=== PATIENT | male | born 1990 | race Caucasian/White ===

== ENCOUNTER 2019-08-15 18:20 | Inpatient (IN) | payer SELFPAY ==
[2019-08-15 18:25] VITALS: BMI 34.7
[2019-08-15 18:29] VITALS: BP 150/107; PULSE 99; RESP 16; TEMP 36.8; O2SAT 99
--- NOTE | 2019-08-15 18:36 | W.ED.PSYCH ---
HPI - Psych General: Chief Complaint: Psychiatric Symptoms Stated Complaint: psych eval Time Seen by Provider: 08/15/19 18:21 Source: patient Mode of arrival: other (police) Limitations: no limitations History of Present Illness: MD complaint: suicidal ideation Onset (ago): day(s) History of same: No Relieving factors: none Exacerbating factors: none Associated symptoms: Reports depression and suicidal ideation Review of Systems Const: Denies: fever, chills, body aches or change in appetite Eyes: Denies: blurry vision or eye discomfort ENMT: Denies: throat pain or dental pain Card: Denies: chest pain Resp: Denies: shortness of breath GI: Denies: abdominal pain, nausea, vomiting or diarrhea : Denies: painful urination Musc: Denies: neck pain or back pain Skin/Breast: Denies: rash Neuro: Denies: headache Psych: Reports: depression and suicidal ideation Brian/Lymph: Denies: easy bruising All/Imm: Denies: hives PFSH ED PFSH: Social History Smoking and tobacco status: current every day smoker Physical Exam Const: COMMON NORMALS: no apparent distress, oriented x3 and healthy appearing HENMT: COMMON NORMALS: normocephalic and head/scalp atraumatic HEAD & SCALP: normocephalic and atraumatic Eye: COMMON NORMALS: PERRL and EOMs intact bilaterally PUPIL: Yes PERRL Neck/C-Spine: COMMON NORMALS: full ROM and supple Chest: COMMONS NORMALS: inspection of chest normal and palpation of chest normal Resp: COMMON NORMALS: normal respiratory effort, no retractions, no use of accessory muscles and clear to auscultation bilaterally AUSCULTATION: clear to auscultation bilaterally Cardio: COMMON NORMALS: regular rate, regular rhythm and no murmurs RATE: regular rate RHYTHM: regular rhythm GI: COMMON NORMALS: normal to inspection, nondistended, normoactive bowel sounds, soft to palpation, non-tender and no masses PALPATION: Yes soft Extremity: COMMON NORMALS: normal to inspection and full ROM Neuro: COMMON NORMALS: oriented x3, moves all extremities and no focal motor deficits Psych: COMMON NORMALS: mental status grossly normal, thought process normal and cooperative THOUGHT PROCESS: normal thought process THOUGHT CONTENT: Yes suicidality Skin: COMMON NORMALS: no rashes or lesions noted and no wounds GENERAL SKIN EXAM: no rashes or lesions noted MDM - Psych MDM Narrative: Medical decision making narrative: Patient presents here with suicidal ideation is on a 96-hour hold. Patient had made statements about killing himself including jumping off a [place] or shooting himself. I spoke to Dr. Rubalcava and will admit to the psychiatric unit at this time. Patient is medically cleared. Lab Data: Labs: Lab Results 08/15/19 08/15/19 Range/Units 18:34 18:34 WBC 12.9 H (4.0-10.0) 10^3/ uL RBC 5.49 H (4.1-5.3) 10^6/u L Hgb 17.4 H (11.7-16.6) g/dL Hct 51.4 (42.0-52.0) % MCV 93.6 (80-94) fL MCH 31.7 (28.0-34.0) pg MCHC 33.9 (30.0-36.0) g/dL RDW 13.4 (12.1-15.1) % Plt Count 158 (130-400) 10^3/c mm MPV 11.4 H (7.4-10.4) fL Neut % (Auto) 75.5 % Lymph % (Auto) 15.2 % Menard % (Auto) 7.9 % Eos % (Auto) 0.7 % Baso % (Auto) 0.3 % Neut # (Auto) 9.7 H (1.8-7.7) 10^3/u L Lymph # (Auto) 2.0 (0.8-4.8) 10^3/u L Menard # (Auto) 1.0 H (0.2-0.9) 10^3/u L Eos # (Auto) 0.1 (0.0-0.8) 10^3/u L Baso # (Auto) 0.0 (0.0-0.1) 10^3/u L Nucleated RBC % (a uto) 0 % Nucleated RBCs # 0.0 /100WBC Sodium 137 (136-145) mmol/L Potassium 4.0 (3.5-5.1) mmol/L Chloride 101 (98-107) mmol/L Carbon Dioxide 25 (22-29) mmol/L Anion Gap 15.0 (5-19) BUN 9 (6-20) mg/dL Creatinine 0.7 (0.7-1.2) mg/dL GFR Calculation 132.4 H (90-130) mL/min Glucose 108 (65-115) mg/dL Calculated Osmolal ity 281 L (285-295) mOsm/k g Calcium 9.5 (8.5-10.5) mg/dL Total Bilirubin 0.4 (0.15-1.2) mg/dL AST 17 (0-40) U/L ALT 14 (0-41) U/L Alkaline Phosphata se 76 (40-130) IU/L Total Protein 8.3 (6.6-8.7) g/dL Albumin 4.7 (3.5-5.2) g/dL Globulin 3.6 (1.3-4.6) g/dL Salicylates < 0.3 L (3-10) mg/dL Acetaminophen < 5.0 L (10-30) ug/mL Ethyl Alcohol < 10 (0-10) mg/dL Discharge Plan Discharge Patient Disposition: Admitted As Inpatient Clinical Impression: Suicidal ideation Condition: Stable Referrals: Vitaliy Holder, FREELANCE OPERATOR-C [Primary Care Provider] - Coding Level of Care Code ED Manager Auto for Chg Fwd Exam Comprehensive
[2019-08-15 18:42] LABS: Basophils % 0.3 %; Eosinophils # 0.1 10^3/uL (0.0-0.8); Eosinophils % 0.7 %; Hematocrit 51.4 % (42.0-52.0); Hemoglobin 17.4 g/dL (11.7-16.6); Lymphocytes % 15.2 %; Mean Corpuscular HGB Conc 33.9 g/dL (30.0-36.0); Mean Corpuscular Hemoglobin 31.7 pg (28.0-34.0); Mean Corpuscular Volume 93.6 fL (80-94); Mean Platelet Volume 11.4 fL (7.4-10.4); Monocytes % 7.9 %; Neutrophils # 9.7 10^3/uL (1.8-7.7); Neutrophils % 75.5 %; Nucleated Red Blood Cells % 0 %; Platelet Count 158 10^3/cmm (130-400); Red Blood Count 5.49 10^6/uL (4.1-5.3); Red Cell Distribution Width 13.4 % (12.1-15.1); White Blood Count 12.9 10^3/uL (4.0-10.0)
[2019-08-15 19:00] LABS: Alanine Aminotransferase 14 U/L (0-41); Albumin Level 4.7 g/dL (3.5-5.2); Alkaline Phosphatase 76 IU/L (40-130); Aspartate Amino Transferase 17 U/L (0-40); Blood Urea Nitrogen 9 mg/dL (6-20); Calcium 9.5 mg/dL (8.5-10.5); Carbon Dioxide 25 mmol/L (22-29); Chloride 101 mmol/L (98-107); Globulin 3.6 g/dL (1.3-4.6); Glomerular Filtration Rate 132.4 mL/min (90-130); Glucose 108 mg/dL (65-115); Osmolality Calculated 281 mOsm/kg (285-295); Sodium 137 mmol/L (136-145); Total Bilirubin 0.4 mg/dL (0.15-1.2); Total Protein 8.3 g/dL (6.6-8.7)
[2019-08-15 19:16] LABS: Acetaminophen < 5.0 ug/mL (10-30); Alcohol Level < 10 mg/dL (0-10); Salicylate < 0.3 mg/dL (3-10)
[2019-08-15 19:45] VITALS: BP 138/84; PULSE 84; RESP 16; O2SAT 98
[2019-08-15 20:05] LABS: Amphetamines Screen Urine Positive (Negative); Barbiturates Screen Urine Negative (Negative); Benzodiazepines Screen Urine Negative (Negative); Cocaine Screen Urine Negative (Negative); Opiate Screen Urine Positive (Negative); PCP Screen Urine Negative (Negative); THC Screen Urine Positive (Negative)
[2019-08-15 20:39] VITALS: BP 138/83; PULSE 110; RESP 21; TEMP 36.4; O2SAT 100
[2019-08-15 22:00] VITALS: RESP 16
[2019-08-16 06:00] VITALS: BP 148/101; PULSE 83; RESP 23; TEMP 36.1; O2SAT 99
--- NOTE | 2019-08-16 10:29 | PM.NHP ---
Providers/Chief Complaint Admitting Physician: Bimal Rubalcava MD Primary Care Provider: Vitaliy Holder, CUSTOMER SERVICE DISPATCHER-C Chief Complaint: psych eval HPI NPU History of Present Illness Brandon Guerrero is a 28 year old male who presents today reporting that he has never had psychiatric treatment in his life, he has never been on medication, he has never had problems, and this is just a situation of his ex-girlfriend wanting to get him hemmed up and in a bad situation. He reports that he has never taken psychiatric medication, never been hospitalized, and denies any problems at this time. What he reports occurred is that his ex-girlfriend got mad because he found out that she was messing around with one of the biggest drug dealers in [facility] and that he told her family and that pissed her off and so she did this in retaliation. The story lacks merit in the sense that he vacillates back and forth between being done with the relationship and not caring and doing things that show an often lot of caring. He reports that he did not make any statements that he would kill himself, that he has never said anything like that, even after I advised him that it is not uncommon for people to do that in stressful moments in relationship, it does not mean they actually are going to do it, but that I had significant concerns that he is going to tell me that it was never said and that she is going to provide proof that it was, and now anything he says about not being suicidal now becomes questionable and at first he denied that that would be the case. He then ended up saying that she had all the passwords to all of his accounts and later acknowledged that they had been broken up for about a month. When I asked why she still had his passwords if they broke up over a month ago, he then said that he did not think it was that big of a deal, so his story does not jive. Additionally, he allowed us to call two numbers, one number did not go to the person he said it would go to. He said it was his mother?s number and it was his [id number]?s number, who did identify that he saw him last Saturday and that there was not anything appearing out of the ordinary. The other number was to his ex-girlfriend and she reports that they did in fact break up about a month ago, but unlike his story he is homeless, nobody wants to take him in, and the nights that she has not allowed him to sleep in the house, he slept in the truck down the road. He tells a story that he is staying in some place across the road from her so he can see everything that is going on, so there are some inconsistencies in his story. She says she has evidence. He tried to say that the police just took her word for it and that is how he got picked up. I advised him that the police are normally more thorough than that and would want to see evidence like I am asking for. According to his ex-girlfriend they did in fact ask for that evidence, did in fact look at that evidence and made their decision to bring him here based upon what they saw. He says that it is only a messenger, messages which would mean she had access to it and he could not explain why she would have had the foresight to do this a month ago or whenever it occurred, when supposedly she is done with him. Additionally, she reports that they have been together for about a year, he was working when they first got together. She has a really good job and he started just not working, not taking jobs and is just sitting around the house. She kept challenging him to be more a part of the household income and he resisted that until about a month ago when she gave him the ultimatum, he did not believe her, she broke up with him, and he ended up getting a job about a month ago. He concurs that he got a job a month ago and that he has been laid off because of the coronavirus. He denies any significant addiction issues. He does smoke marijuana more or less daily. He does report using methamphetamine occasionally and it is really unclear if those representations of his use are accurate or he is now playing it for reasons of wanting to be discharged. In fact, at one point, the tension that had gotten very high because he was being very angry in posturing, was dissipated in a moment where I challenged him on the situation and he said ?why would I lie? and I somewhat laughed and said you have lots of reasons to lie, and he ended up laughing and saying that I was obviously correct and after that we were able to kind of be more calm conversation where he was accepting that we need to do our due diligence to make sure he is safe given what has been asserted. His UDS was positive for opiates, amphetamines, and marijuana, so there is a high likelihood that addiction is playing a higher role than he is acknowledging, but he denies any issues. He denied any suicide attempts in the past. PSYCHIATRIC HISTORY: As above. He denies any significant psychiatric issues nor does he report ever being depressed or ever thinking about suicide. SUBSTANCE ABUSE HISTORY: He endorses smoking about 2 ? to 3 packs of cigarettes a day. He does not drink alcohol. He smokes marijuana daily. He did not use cocaine. He uses methamphetamine, he reports occasionally. He denied opiate or heroin abuse or problems though his UDS was positive and he denied rehab or DUI?s. FAMILY HISTORY: He denied any significant mental health or addiction issues. He denied any suicide attempts or completions in the family. DEVELOPMENTAL HISTORY: He denies any issues during his mom?s with him. He reports he learned to walk and talk and met his developmental milestones on time. He denied any speech therapy, learning support, emotional support or special education classes. He reports his mom and dad were together when he was born, but he is the only product of that relationship. His mom had a son and a daughter other than him; his dad had a lot of kids other than him when his parents . He reports his childhood was normal like everyone else. He denied any emotional, physical, or sexual abuse during his childhood. He graduated from high school. 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 He endorses being a heterosexual and his longest relationship was about eight years. He has been once, once. He has three children, an 8 year old girl, a 6 year old boy and an almost 2 year old boy. He has never been in the . He reports he believes in God. He reports his longest job he worked was probably about five years at a [email or web address]. 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 He says he lives in an apartment with his friend, but that is not what is being reported by his ex who he allowed us to talk to. He does have significant tattooing on his arms. PSYCHOSOCIAL HISTORY: LEGAL HISTORY: He says he [facility], but never more than a few hours. MEDICAL HISTORY: He denied. Meds NPU Home Medications Medication Instructions Recorded Confirmed Type No Known Home Medications 08/15/19 08/15/19 History Allergies Allergy/AdvReac Type Severity Reaction Status Date / Time aspirin Allergy ADR-Nausea Verified 08/15/19 18:32 PFSH NPU PFSH: Social History Smoking and tobacco status: current every day smoker Mental Status Exam MSE Comments: This is a well-nourished, overweight versus obese, white male, with adequate dress, grooming, and eye contact. No abnormal movements. Cooperative with exam in no acute distress. Speech was normal rate and volume. Mood described as irritated; affect congruent. Thought process, organized. Thought content: patient denied any suicidal or homicidal ideation, there were no delusions reported or noted, patient denied any auditory or visual hallucinations. Attention, concentration, and memory appear intact but were not formally tested. He is alert and oriented times three. Insight and judgment are limited and improving. Vitals/I&O/Wt Last Vital Signs Temp 97.0 F L 08/16/19 06:00 Pulse 83 08/16/19 06:00 Resp 23 H 08/16/19 06:00 BP 148/101 08/16/19 06:00 Pulse Ox 99 08/16/19 06:00 Weight last 48 hrs Weight 102.784 kg Weight 122.47 kg Data NPU : 08/15/19 18:34 08/15/19 18:34 A&P Assessment and plan (1) Suicidal ideation: This is a 28 year old, white male, with a recent breakup with his girlfriend with reports of endorsement of depression and thoughts and plans to kill himself with multiple statements made in different situations which he denies, who presents on a 96-hour hold denying any issues or need for medication interventions. Continue current medication. Encourage individual, group, and milieu therapy. Continue q 15-minute checks for safety. Will work with treatment team in the morning to develop a plan and advise him to engage in sober living treatment at the highest level of care to which he is willing to commit. Status: Acute (2) Adjustment disorder with mixed disturbance of emotions and conduct: Status: Acute (3) Partner relational problem: Status: Acute Involuntary Hold Information 96 Hour Hold: 96 Hour Involuntary Admission: No Attestations NPU Medical Necessity Statement*: Inpatient hospitalization is medically necessary and the clinically appropriate intervention at this time. He will be in the hospital for over two midnights. We will consider medications and monitor and adjust as indicated. He is on a 96-hour hold. We will evaluate for credible lethality and discharge as soon as we feel comfortable that we have identified a path for safe discharge. Likely length of stay two to four days. Coding Level of Care Code Acute Licensed Nurse Practitioner for Ameen[facility] Fwd Diagnoses Suicidal ideation R45.851 Adjustment disorder with mixed disturbance of emotions and conduct F43.25 Partner relational problem Z63.0
[2019-08-16 14:00] VITALS: BP 140/89; PULSE 84; RESP 17; TEMP 37; O2SAT 98
[2019-08-16] MEDS: nicotine 21 mg Patch 1 PATCH TRANSDERMA (14:31)
[2019-08-16] MEDS: nicotine 2 mg Gum BUCCAL ×2 (19:41→21:43)
--- NOTE | 2019-08-16 20:30 | PC.NURSE ---
Pt offer prn trazodone at this time, pt refused.
[2019-08-16 21:06] VITALS: BP 119/81; PULSE 96; RESP 23; TEMP 36.3; O2SAT 96
[2019-08-17 06:00] VITALS: BP 127/79; PULSE 83; RESP 21; TEMP 36.7; O2SAT 98
[2019-08-17] MEDS: nicotine 2 mg Gum BUCCAL ×7 (06:23→20:02)
[2019-08-17 14:00] VITALS: BP 127/82; PULSE 84; RESP 18; TEMP 36.6; O2SAT 99
--- NOTE | 2019-08-17 15:35 | PM.NPN ---
Subjective NPU Subjective: Interval history: The patient presents today acknowledging that this residential mortgage underwriter?s assessment from yesterday was true. He endorses that he did in fact make the comments that were asserted and the texts that were written. However, he does also deny any active thoughts to hurt himself or kill himself. He denies any previous psychiatric history or periods of time where he even seriously contemplated self-harm. He reports that it was a stressful relationship and he was being reactionary, but he has had an opportunity since he came to the hospital to think about how much he loves his three children and reports he would never do that to them and that he has no interest in killing himself. We discussed the 96-hour hold which there is some question about whether it was documented appropriately by the court and the outside hospital. We agreed that he would sign himself into the hospital, that we would monitor him for another 24 hours and plan for discharge tomorrow. Mental Status Exam MSE Comments: This is an overweight, versus obese, white male, with adequate dress, grooming, and eye contact with some teeth missing in the front. No abnormal movements. Cooperative with exam in no acute distress. Speech was normal rate and volume. Mood described as a little better; affect congruent. Thought process, organized. Thought content: patient denied any suicidal or homicidal ideation, there were no delusions reported or noted, patient denied any auditory or visual hallucinations. Attention, concentration, and memory appeared intact but were not formally tested. Alert and oriented times three. Insight and judgment are limited but improving. Vitals/I&O/Wt Last Vital Signs Temp 98.2 F 08/17/19 22:00 Pulse 86 08/17/19 22:00 Resp 20 H 08/17/19 22:00 BP 125/83 08/17/19 22:00 Pulse Ox 98 08/17/19 22:00 Weight last 48 hrs Weight 102.784 kg Home Medications No Known Home Medications 08/15/19 [History Confirmed 08/15/19] Active Medications Acetaminophen (Tylenol) 650 mg PO Q4H PRN PRN Reason: MILD PAIN Benztropine Mesylate (Cogentin) 1 mg PO BID PRN PRN Reason: Mild Extrapyramidal symptoms Camphor/Menthol/Phenol (Blistex) 1 applic TOPICAL Q1H PRN PRN Reason: DRYNESS Diphenhydramine HCl (Benadryl) 50 mg IM ONCE PRN PRN Reason: Severe Extrapyramidal Symptoms Diphenhydramine HCl (Benadryl) 50 mg IM Q4H PRN PRN Reason: Severe Aggression Haloperidol (Haldol) 5 mg PO Q4H PRN PRN Reason: AGITATION Haloperidol Lactate (Haldol Inj) 5 mg IM Q4H PRN PRN Reason: Severe Aggression Hydroxyzine Pamoate (Vistaril) 50 mg PO Q6H PRN PRN Reason: ANXIETY Loperamide HCl (Imodium Capsule) 2 mg PO Q6H PRN PRN Reason: DIARRHEA Lorazepam (Ativan) 2 mg IM Q4H PRN PRN Reason: Severe Aggression Nicotine (Nicoderm 21 Mg Patch) 1 patch TRANSDERMA DAILY PRN PRN Reason: NICOTINE WITHDRAWAL Last Admin: 08/16/19 14:31 Dose: 1 patch Documented by: Nicotine Polacrilex (Nicorette) 2 mg BUCCAL Q2H PRN PRN Reason: NICOTINE WITHDRAWAL Last Admin: 08/18/19 08:18 Dose: 2 mg Documented by: Olanzapine (Zyprexa Zydis) 5 mg PO Q4H PRN PRN Reason: Agitation/Psychosis Ondansetron HCl (Zofran) 4 mg PO Q6H PRN PRN Reason: NAUSEA AND VOMITING Trazodone HCl (Desyrel) 50 mg PO BEDTIME PRN PRN Reason: SLEEP Data NPU : 08/15/19 18:34 08/15/19 18:34 A&P Additional A&P Information (1) Suicidal ideation: This is a 28 year old, white male, with a recent breakup with his girlfriend with reports of endorsement of depression and thoughts and plans to kill himself with multiple statements made in different situations which he denies, who presents on a 96-hour hold denying any issues or need for medication interventions. Continue current medication. Encourage individual, group, and milieu therapy. Continue q 15-minute checks for safety. Will work with treatment team in the morning to develop a plan and advise him to engage in sober living treatment at the highest level of care to which he is willing to commit. (2) Adjustment disorder with mixed disturbance of emotions and conduct: (3) Partner relational problem: Involuntary Hold Information 96 Hour Hold: 96 Hour Involuntary Admission: No Attestations NPU Medical Necessity Statement*: Inpatient hospitalization is medically necessary and the clinically appropriate intervention at this time. We will consider medications and monitor and adjust as indicated. He is on a 96-hour hold. We will evaluate for credible lethality and discharge as soon as we feel comfortable that we have identified a path for safe discharge. Likely length of stay 1-3 days. Tentative discharge tomorrow. Coding Level of Care Code Acute Plater Production for Arnoldo Davis
[2019-08-17 22:00] VITALS: BP 125/83; PULSE 86; RESP 20; TEMP 36.8; O2SAT 98
[2019-08-18 06:00] VITALS: BP 124/77; PULSE 84; RESP 18; TEMP 36.4; O2SAT 99
[2019-08-18] MEDS: nicotine 2 mg Gum BUCCAL ×3 (06:11→10:17)
--- NOTE | 2019-08-18 11:17 | P.DS_ITS ---
Diagnoses at Discharge Discharge Diagnosis (1) Adjustment disorder with mixed disturbance of emotions and conduct: Status: Acute (2) Partner relational problem: Status: Acute Reason for Visit Reason for Visit: Reason For Visit: psych eval Brief History: HPI NPU History of Present Illness Brandon Guerrero is a 28 year old male who presents today reporting that he has never had psychiatric treatment in his life, he has never been on medication, he has never had problems, and this is just a situation of his ex- girlfriend wanting to get him hemmed up and in a bad situation. He reports that he has never taken psychiatric medication, never been hospitalized, and denies any problems at this time. What he reports occurred is that his ex-girlfriend got mad because he found out that she was messing around with one of the biggest drug dealers in [facility] and that he told her family and that pissed her off and so she did this in retaliation. The story lacks merit in the sense that he vacillates back and forth between being done with the relationship and not caring and doing things that show an often lot of caring. He reports that he did not make any statements that he would kill himself, that he has never said anything like that, even after I advised him that it is not uncommon for people to do that in stressful moments in relationship, it does not mean they actually are going to do it, but that I had significant concerns that he is going to tell me that it was never said and that she is going to provide proof that it was, and now anything he says about not being suicidal now becomes questionable and at first he denied that that would be the case. He then ended up saying that she had all the passwords to all of his accounts and later acknowledged that they had been broken up for about a month. When I asked why she still had his passwords if they broke up over a month ago, he then said that he did not think it was that big of a deal, so his story does not jive. Additionally, he allowed us to call two numbers, one number did not go to the person he said it would go to. He said it was his mother?s number and it was his as-mfiayc-ju-law?s number, who did identify that he saw him last Saturday and that there was not anything appearing out of the ordinary. The other number was to his ex-girlfriend and she reports that they did in fact break up about a month ago, but unlike his story he is homeless, nobody wants to take him in, and the nights that she has not allowed him to sleep in the house, he slept in the truck down the road. He tells a story that he is staying in some place across the road from her so he can see everything that is going on, so there are some inconsistencies in his story. She says she has evidence. He tried to say that the police just took her word for it and that is how he got picked up. I advised him that the police are normally more thorough than that and would want to see evidence like I am asking for. According to his ex-girlfriend they did in fact ask for that evidence, did in fact look at that evidence and made their decision to bring him here based upon what they saw. He says that it is only a messenger, messages which would mean she had access to it and he could not explain why she would have had the foresight to do this a month ago or whenever it occurred, when supposedly she is done with him. Additionally, she reports that they have been together for about a year, he was working when they first got together. She has a really good job and he started just not working, not taking jobs and is just sitting around the house. She kept challenging him to be more a part of the household income and he resisted that until about a month ago when she gave him the ultimatum, he did not believe her, she broke up with him, and he ended up getting a job about a month ago. He concurs that he got a job a month ago and that he has been laid off because of the coronavirus. He denies any significant addiction issues. He does smoke marijuana more or less daily. He does report using methamphetamine occasionally and it is really unclear if those representations of his use are accurate or he is now playing it for reasons of wanting to be discharged. In fact, at one point, the tension that had gotten very high because he was being very angry in posturing, was dissipated in a moment where I challenged him on the situation and he said ?why would I lie? and I somewhat laughed and said you have lots of reasons to lie, and he ended up laughing and saying that I was obviously correct and after that we were able to kind of be more calm conversation where he was accepting that we need to do our due diligence to make sure he is safe given what has been asserted. His UDS was positive for opiates, amphetamines, and marijuana, so there is a high likelihood that addiction is playing a higher role than he is acknowledging, but he denies any issues. He denied any suicide attempts in the past. PSYCHIATRIC HISTORY: As above. He denies any significant psychiatric issues nor does he report ever being depressed or ever thinking about suicide. SUBSTANCE ABUSE HISTORY: He endorses smoking about 2 ? to 3 packs of cigarettes a day. He does not drink alcohol. He smokes marijuana daily. He did not use cocaine. He uses methamphetamine, he reports occasionally. He denied opiate or heroin abuse or problems though his UDS was positive and he denied rehab or DUI?s. FAMILY HISTORY: He denied any significant mental health or addiction issues. He denied any suicide attempts or completions in the family. DEVELOPMENTAL HISTORY: He denies any issues during his mom?s with him. He reports he learned to walk and talk and met his developmental milestones on time. He denied any speech therapy, learning support, emotional support or special education classes. He reports his mom and dad were together when he was born, but he is the only product of that relationship. His mom had a son and a daughter other than him; his dad had a lot of kids other than him when his parents . He reports his childhood was normal like everyone else. He denied any emotional, physical, or sexual abuse during his childhood. He graduated from high school. 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 He endorses being a heterosexual and his longest relationship was about eight years. He has been once, once. He has three children, an 8 year old girl, a 6 year old boy and an almost 2 year old boy. He has never been in the . He reports he believes in God. He reports his longest job he worked was probably about five years at a [employer]. 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 He says he lives in an apartment with his friend, but that is not what is being reported by his ex who he allowed us to talk to. He does have significant ta ttooing on his arms. PSYCHOSOCIAL HISTORY: LEGAL HISTORY: He says he has been in prison a couple of times, but never more than a few hours. MEDICAL HISTORY: He denied. [facility] presented to the emergency room with police with reports of making suicidal comments to his ex-girlfriend on multiple occasions. He was admitted to the neuro psych unit for evaluation and as a safety measure. He was resistant to the individual, group and milieu therapy and was initially denying the accusations. Ultimately he was able to confide in this specification writer that he did make some comments that he certainly does not mean and remained in anger and has a attempt to goad his ex-girlfriend. He was monitored and evaluated over the course of his stay and noted to be absent credible lethality. He was not interested in starting any medications or displaying any significant symptoms and so no medications were started. During the hospitalization he had routine laboratory studies which were within normal limits except for a few outliers. Additionally there was a general medical evaluation which was also within normal limits and revealed no new acute processes. Discharge Summary At the time of discharge he was absent lethality, he was displaying no mood or anxiety symptoms. There is no psychosis noted or reported and he endorsed a plan to avoid all drugs of abuse. Referrals were made for outpatient services which she was encouraged to utilize. He was evaluated and noted to be absent credible lethality and was not interested in psychiatric services and had obtained the maximum benefit from an inpatient hospitalization and so he was allowed to discharge. Involuntary Hold Information 96 Hour Hold: 96 Hour Involuntary Admission: No Mental Status Exam MSE Comments: This is an overweight, versus obese, white male, with adequate dress, grooming, and eye contact with some teeth missing in the front. No abnormal movements. Cooperative with exam in no acute distress. Speech was normal rate and volume. Mood described as pretty good; affect congruent. Thought process, organized. Thought content: patient denied any suicidal or homicidal ideation, there were no delusions reported or noted, patient denied any auditory or visual hallucinations. Attention, concentration, and memory appeared intact but were not formally tested. Alert and oriented times three. Insight and judgment are improving. Discharge Data Vitals: Last Vital Signs Temp 97.6 F 08/18/19 06:00 Pulse 84 08/18/19 06:00 Resp 18 08/18/19 06:00 BP 124/77 08/18/19 06:00 Pulse Ox 99 08/18/19 06:00 Discharge Plan Discharge Patient Disposition: Home, Self-Care Condition: Stable Prescriptions: Continued No Known Home Medications RF: 0 Discharge Orders: Discharge Order (Routine); Ordered 08/18/19 Ordered By: Bimal Rubalcava Referrals: [facility] [Outside] (To get outpatient mental health services you will need to go to clinic and request the services. It is recommended that you do this immediately after discharge, if posssible. ) [facility] [Outside] (do contact [facility] if you want substance abuse treatment. ) Vitaliy Holder, GOVERNMENT PROFESSOR-C [Primary Care Provider] - Discharge Diet: Regular Discharge Activity: Resume usual activity Discharge Date/Time: 08/18/19 11:30 Discharge Attestations NPU Time Spent in Discharge Care*: less than 30 min Specific Discharge Activities: Specific discharge activities: educating patient, discussing with insurance case manager/social workers/dc planners, documenting/other paperwork and evaluating patient/reviewing data Coding Level of Care Code Acute [employer] Room Operator for Chg Fwd Diagnoses Adjustment disorder with mixed disturbance of emotions and conduct F43.25 Partner relational problem Z63.0
[2019-08-18 11:22] VITALS: BP 124/77; PULSE 84; RESP 18; TEMP 36.4; O2SAT 99
== END 2019-08-18 11:30 | disposition home or self-care (01) | DRG 882 ==
LOC: ER 19:29 → NP 19:38
PROVIDERS: Admitting Provider Psychiatry & Neurology Psychiatry; Emergency Provider Emergency Medicine; Family Provider Nurse Practitioner; PCP Nurse Practitioner; Visit Provider Psychiatry & Neurology Psychiatry
DX: F43.25 Adjustment disorder with mixed disturbance of emotions and conduct (principal); F68.8 Other specified disorders of adult personality and behavior; F12.20 Cannabis dependence, uncomplicated; F17.210 Nicotine dependence, cigarettes, uncomplicated
CPT/HCPCS: 12345; 80053; 80306; 80307; 85025; 99284

== ENCOUNTER 2023-05-09 11:30 | Emergency (ER) | payer SELFPAY ==
[2023-05-09 11:40] VITALS: BP 152/96; PULSE 73; TEMP 36.6; O2SAT 100; BMI 32.8
--- NOTE | 2023-05-09 13:44 | W.ED.SKABFB ---
HPI - Skin/Abscess/Foreign Bdy General: Chief complaint: Skin/Abscess/Foreign Body Stated complaint: sore on abd Time Seen by Provider: 05/09/23 11:32 History of Present Illness: 32-year-old male patient comes in today with a sore to his lower abdomen with surrounding redness started 2 to 3 days ago. Patient has been using antibiotic ointment with no improvement of wound. Patient reports no fever. Patient appears nontoxic. Patient has allergy to aspirin. Patient takes no routine medications. Review of Systems General: Reports: 10 or more systems reviewed and unremarkable except in HPI and below Skin/Breast: Reports: erythema and changing lesions PFS ED PFSH: Social History (System 08/05/20 @ 08:28 by Krystal Kimble) Smoking and tobacco/nicotine status: current every day tobacco/nicotine user Physical Exam Const: COMMON NORMALS: alert HENMT: COMMON NORMALS: normocephalic HEAD & SCALP: normocephalic Neck/C-Spine: COMMON NORMALS: full ROM Resp: COMMON NORMALS: normal respiratory effort Back/Pelvis: COMMON NORMALS: thoracic and lumbar spine normal to inspection Extremity: COMMON NORMALS: full ROM Neuro: SENSORIUM/ORIENTATION: Yes alert Skin: LESIONS: lesion noted (Mid lower abdomen, whitish exudate 1 cm, surrounded by erythema 8 cm) Course Vital Signs: Vital signs: Vital Signs Temperature 97.8 F 05/09/23 11:40 Pulse Rate 73 05/09/23 11:40 Blood Pressure 152/96 05/09/23 11:40 Pulse Oximetry 100 05/09/23 11:40 Oxygen Delivery Me thod Room Air 05/09/23 11:40 MDM - Skin/Abscess/Foreign Bdy Medicial Decision Making Patient comes in for a nonhealing wound to his lower abdomen. Patient noticed increasing redness and tenderness over the last 3 days. Patient does not recall insect bite or when the wound for started. Patient appears nontoxic. Patient at this time has a open wound approximately 1 cm diameter with white exudate in the center. Patient has surrounding erythema up to 8 cm. No fluctuance or induration is noted. Differential diagnosis includes but not limited to infected insect bite, carbuncle, cellulitis, infected wound. Patient appears nontoxic. Will treat for wound infection with Bactrim DS 1 tablet twice a day for 7 days. And mupirocin ointment. Patient reported understanding of care plan need for follow-up or return to the ER. No radiology studies performed this visit Discharge Plan Discharge Patient Disposition: Home Clinical Impression: Wound infection, posttraumatic Condition: Stable Prescriptions: New sulfamethoxazole-trimethoprim 800-160 mg tablet 1 tab PO BID 7 Days Qty: 14 0RF Discharge Orders: Discharge ED (Routine); Ordered 05/09/23 Ordered By: Charlie Dunne Referrals: Vitaliy Holder, WEB USER EXPERIENCE STRATEGIST-C [Primary Care Provider] - Discharge Diet: Usual diet Discharge Activity: Increase activity as tolerated Patient Instructions: Wound Care (General) Activity Restrictions/Additional Instructions: Clean wound twice a day with mild soap and water. Apply mupirocin antibiotic ointment and then cover with a dressing for protection. Drink plenty of water and fluids. Take antibiotics as prescribed. Follow-up with primary care for further instructions. Coding Level of Care Code ED Youth Minister for Arnoldo Davis
[2023-05-09] MEDS: sulfamethoxazole-trimeth DS 160-800 mg Tablet 1 TAB PO (14:07)
[2023-05-09] MEDS: mupirocin oint 22 gm 1 APPLIC TOPICAL (14:07)
== END 2023-05-09 14:15 | disposition home or self-care (01) ==
PROVIDERS: Emergency Provider Nurse Practitioner Family; PCP Nurse Practitioner
DX: S31.109A Unspecified open wound of abdominal wall, unspecified quadrant without penetration into peritoneal cavity, initial encounter (principal); L08.9 Local infection of the skin and subcutaneous tissue, unspecified; X58.XXXA Exposure to other specified factors, initial encounter; Z72.0 Tobacco use
CPT/HCPCS: 99283